=== PATIENT | male | born 1995 | race African-American/Black ===

== ENCOUNTER 2019-02-19 16:15 | Emergency (ER) | payer SELFPAY ==
[~2019-02-19] VITALS: Ht 188 cm; Wt 100.0 kg
[2019-02-19 19:18] VITALS: BP 140/94
== END 2019-02-19 22:25 | disposition left against medical advice (07) ==
LOC: ER 17:06
DX: Z53.21 Procedure and treatment not carried out due to patient leaving prior to being seen by health care provider (principal)